=== PATIENT | male | born 1940 | race Caucasian/White ===

== ENCOUNTER 2019-08-20 00:32 | Outpatient (CLI) | payer MEDICARE, SELFPAY | END 2019-08-20 00:33 | disposition home or self-care (01) | LOC: ANHCOVIDDT 00:32 | PROVIDERS: PCP Family Medicine Adolescent Medicine; Visit Provider Internal Medicine Gastroenterology | DX: Z01.812 Encounter for preprocedural laboratory examination (principal); Z20.828 Contact with and (suspected) exposure to other viral communicable diseases | CPT/HCPCS: 87635; C9803; U0003 ==

== ENCOUNTER 2019-08-23 01:29 | Day surgery (SDC) | payer MEDICARE, SELFPAY ==
[2019-08-17 13:47] VITALS: BMI 24.4
[2019-08-23 06:47] VITALS: BP 124/65; PULSE 74; RESP 18; TEMP 35.9; O2SAT 100
[2019-08-23] MEDS: LACTATED RINGERS 1,000 ML 150 ML IV CONT (07:00)
--- NOTE | 2019-08-23 07:27 | WPDANESEPPF ---
Anes - Initial Pre Proc Eval Procedure: Operation Date: 08/23/19 08:00 Proposed Procedures p Colonoscopy - Nick Mckeon MD Date/Time: 08/23/19 07:27 Surgeon: Nick Mckeon MD Pre Op Diagnosis: Diarrhea Patient Data Age: 79 Gender: M Height: 5 ft 10 in Weight: 76.6 kg Last Vital Signs Temp 35.9 C L 08/23/19 06:47 Pulse 74 08/23/19 06:47 Resp 18 08/23/19 06:47 BP 124/65 08/23/19 06:47 Pulse Ox 100 08/23/19 06:47 Allergies Allergy/AdvReac Type Severity Reaction Status Date / Time No Known Allergies Allergy Verified 08/23/19 06:43 Home Medications Medication Instructions Recorded Confirmed Type lisinopril 10 mg PO DAILY 08/17/19 08/17/19 History Patient hx anesthesia problems: none Family hx anesthesia problems: none PMFSH Past Medical History Medical History Hypertension Anes - Eval Final PreProcedure Day of Procedure 08/23/19 07:27 Patient weight: normal Heart: regular rate and rhythm Lungs: clear to auscultation Airway: Mallampati scale class II Neurological: alert and oriented Last oral intake: >/= 8 hours ASA classification: II Emergent: no Anesthetic plan: proceed Anesthesia type and monitoring: general GIVS Informed Consent: The patient's anesthetic plan and its attendant risks and benefits were discussed with the patient/family/POA. Questions were solicited and answers provided to the satisfaction of the patient/family/POA.
--- NOTE | 2019-08-23 07:36 | P.CONGI_ITS ---
Assessment and Plan Assessment and plan (1) History of colon polyps: Code(s): Z86.010 - Personal history of colonic polyps Status: Acute Assessment and Plan: Because of his personal history of colon polyp screening colonoscopy will be performed today. It has been 5 years since last exam. (2) Diarrhea: Code(s): R19.7 - Diarrhea, unspecified Status: Acute Assessment and Plan: Play shunt complains of diarrhea however his bowel habits have alternated be tween diarrhea and constipation for some time. No bleeding has been noted as weight has remained stable. This symptom complex most consistent with irritable bowel syndrome. Will be evaluated at time of colonoscopy. Patient has tried fiber, Questran with no relief of symptoms. Imodium use may contribute to alternation between diarrhea and constipation is not encouraged. Kaopectate may be a better choice. Further recommendations may be given after endoscopy. GI Consult Note Consult date/time: 08/23/19 07:36 HPI: Gold Campbell is a 79 year old male Seen in evaluation at the request of Dr. Morgan Escobar. Patient reports a history diarrhea for many years. He states loose stools will fluctuate with normal stools. Initially was tried on Questran with some improvement. Diarrhea currently a occurs at least 1 time a week. He recently has tried fiber supplementation with no specific change in his bowel pattern. He occasionally will use Immodium AD To control his bowel habits. He denies any blood loss. He does note the diarrhea will alternate with constipation as well. Most recent colonoscopy 2014 and prior to that 2009. He does have a history of colon polyps in the past. he has a history of hypertension. Current medications include lisinopril. He has no known drug allergies. Family history is noncont Review of Systems Review of Systems: All systems reviewed & are unremarkable except as noted in HPI and below PMFSH Past Medical History Medical History Hypertension Meds Home Medications and Allergies Home Medications Medication Instructions Recorded Confirmed Type lisinopril 10 mg PO DAILY 08/17/19 08/17/19 History Allergies Allergy/AdvReac Type Severity Reaction Status Date / Time No Known Allergies Allergy Verified 08/23/19 06:43 Vital Signs Vital Signs - 24 hr 08/23/19 06:47 Temperature 35.9 C L Pulse Rate 74 Respiratory Rate 18 Blood Pressure 124/65 Pulse Oximetry 100 Exam Narrative: Exam Narrative: Physical exam reveals patient to be alert. Vital signs are stable. HEENT exam unremarkable. Lungs are clear to auscultation and percussion. Heart is without murmur or extra sounds. Abdominal exam bowel sounds are present soft nontender with no hepatosplenomegaly. Digital external rectal exam is normal.
[2019-08-23 08:07] VITALS: BP 82/49; PULSE 72; RESP 22; O2SAT 96
[2019-08-23 08:17] VITALS: BP 96/62; PULSE 61; RESP 18; O2SAT 100
[2019-08-23 08:27] VITALS: BP 114/73; PULSE 62; RESP 18; O2SAT 100
[2019-08-23 08:37] VITALS: BP 99/60; PULSE 68; RESP 18; O2SAT 100
== END 2019-08-23 08:47 | disposition home or self-care (01) ==
PROVIDERS: PCP Family Medicine Adolescent Medicine; Visit Provider Internal Medicine Gastroenterology
PROC: 0DJD8ZZ Inspection of Lower Intestinal Tract, Via Natural or Artificial Opening Endoscopic (ICD-10-PCS; CPT 45378; principal; 2019-08-23 08:00)
DX: Z12.11 Encounter for screening for malignant neoplasm of colon (principal); K63.5 Polyp of colon; R19.7 Diarrhea, unspecified; K57.30 Diverticulosis of large intestine without perforation or abscess without bleeding; K64.8 Other hemorrhoids; I10 Essential (primary) hypertension
CPT/HCPCS: 45385; 88305; J7120

== ENCOUNTER → 2021-08-22 11:43 | Outpatient (CLI) | payer MEDICARE, SELFPAY ==
--- NOTE | ~2021-08-22 | CT_ITS ---
EXAMINATION: CT sinus wo con DATE: 08/22/2021 12:01 INDICATION: Chronic frontal sinusitis TECHNIQUE: Computed tomography (CT) of the paranasal sinuses was performed without intravenous contra st. The dose-length product was 271.16 mGy-cm. Automated exposure control and iterative reconstructio n technique were employed. COMPARISON: CT dated 11/20/2015 FINDINGS: There is mucosal thickening of the maxillary, ethmoid sinuses with air-fluid levels. Mastoi ds are pneumatized. No depressed skull fractures. There is intracranial atherosclerosis. There is rig htward nasal septal deviation. There are surgical changes of the ostiomeatal units. IMPRESSION: 1. Moderate sinus disease primarily involving the maxillary sinuses. Reviewed, dictated and finalized at location B.
== END ==
PROVIDERS: PCP Family Medicine Adolescent Medicine; Visit Provider Otolaryngology
DX: J32.1 Chronic frontal sinusitis (principal)
CPT/HCPCS: 70486

== ENCOUNTER 2023-11-30 12:39 | Outpatient (CLI) | payer SELFPAY ==
--- NOTE | ~2023-11-30 | MR_ITS ---
EXAMINATION: MR cervical spine wo con DATE: 11/30/2023 13:20 INDICATION: Neck pain. Left arm weakness. TECHNIQUE: Magnetic resonance imaging (MRI) of the cervical spine was performed without intravenous c ontrast. COMPARISON: Cervical spine MRI 01/27/2018, 05/27/04 FINDINGS: There is 12 degrees levoscoliosis of cervicothoracic spine. There is interbody fusion from C3 to C6. There is severely decreased disc height at C2-C3. There are changes of posterior fusion pro cedure from C4 to C7 with lateral mass screws. There are laminectomies at C4 and C5 and C6. There is increased T2-weighted signal intensity in the spinal cord on the left at C4-C5 on only one image, pro bably an artifact. The following disc levels are specifically discussed: C2-C3: The disc is bulging and has an annular fissure. There is severe bilateral uncovertebral joint osteoarthritis. There is severe bilateral facet joint osteoarthritis. There is mild left neural jeanne inal stenosis. There is moderate central canal stenosis with ventral and dorsal indentation of the sp inal cord. C3-C4: There is no uncovertebral joint hypertrophy. There is mild bilateral facet joint hypertrophy. There is no neural foraminal stenosis. There is no central canal stenosis. C4-C5: There is moderate bilateral uncovertebral joint hypertrophy. There is no facet joint hypertrop hy. There is mild bilateral neural foraminal stenosis. There is no central canal stenosis. C5-C6: There is moderate bilateral uncovertebral joint hypertrophy. There is no facet joint hypertrop hy. There is mild bilateral neural foraminal stenosis. There is no central canal stenosis. C6-C7: There is a central protrusion. There is moderate bilateral uncovertebral joint osteoarthritis. There is severe bilateral facet joint osteoarthritis. There is mild bilateral neural foraminal steno sis. There is mild central canal stenosis. C7-T1: There is a central protrusion. There is no uncovertebral joint osteoarthritis. There is mild b ilateral facet joint osteoarthritis. There is mild bilateral neural foraminal stenosis. There is no c entral canal stenosis. IMPRESSION: 1. Severe cervical spondylosis. 2. Anterior procedure from C3 to C6. Posterior fusion procedure from C4 to C6. Reviewed, dictated and finalized at location A.
== END 2023-11-30 12:40 ==
PROVIDERS: PCP Family Medicine Adolescent Medicine; Visit Provider Family Medicine Adolescent Medicine
DX: M47.892 Other spondylosis, cervical region (principal); Z98.1 Arthrodesis status
CPT/HCPCS: 72141

== ENCOUNTER 2024-07-08 08:33 | Outpatient (CLI) | payer MEDICARE, SELFPAY ==
--- NOTE | ~2024-07-08 | CT_ITS ---
EXAMINATION: CT sinus wo con DATE: 07/08/2024 08:58 INDICATION: Recurrent headaches. Chronic sinus disease. TECHNIQUE: Computed tomography (CT) of the paranasal sinuses was performed without intravenous contra st. The dose-length product was 263.20 mGy-cm. Automated exposure control and iterative reconstructio n technique were employed. COMPARISON: 08/22/2021 FINDINGS: There is moderate mucosal thickening of the maxillary sinuses. There are surgical changes o f the ostiomeatal units. There is mild mucoperiosteal reaction of the maxillary sinuses. No nasal sep rancho deviation. Mastoids are pneumatized. IMPRESSION: 1. Moderate maxillary sinus disease, likely chronic. Reviewed, dictated and finalized at location A.
== END 2024-07-08 08:34 | disposition home or self-care (01) ==
LOC: MICIMG 08:34
PROVIDERS: PCP Family Medicine Adolescent Medicine; Visit Provider Family Medicine Adolescent Medicine
DX: J32.1 Chronic frontal sinusitis (principal); R51.9 Headache, unspecified
CPT/HCPCS: 70486

== ENCOUNTER 2025-01-05 07:46 | Outpatient (RCR) | payer MEDICARE, SELFPAY ==
--- NOTE | 2025-01-05 08:48 | PTOPEVDC ---
Assessment and note entered by Jo Scherer, PT Thank you for referring Gold Campbell to [facility].? An evaluation has been completed. No further treatment is needed. Evaluation/ Discharge Assessment Status Evaluation ICD-10 Condition Codes (PT) Pain in right knee M25.561 Onset about 1 year Subjective Information chronic issues with R knee pain, have injections in knee about every 6 months; xray R knee: mild medial joint narrowing, mild patellofemoral changes does not do any exercises for his knee activity: independent with all home and self care tasks; does not use assistive device; works 2-3 days/week on his property, rides motorcycle; home with ; Reported Pain Level Pain Score Self Report Additional Pain Score Comments pain range 0-5/10 in the past week; injection helps knee pain pain just hits, not relate to anything walking is not limited due to pain Assessment PT Clinical Summary Checo has the diagnosis of R knee pain. He has chronic knee pain and manages it with injections about every 6 months. He is active but does not perform any regular exercises for his legs. With the evaluation: decreased strength of hip abduction and tightness over hamstrings and quad/ anterior hip bilateral. Education to pt on home exercises. He did not want any additional therapy and states he will do the exercises at home. Issued PT name and number for him to call if any further questions arise. Discharge PT services after education completed for HEP. Plan of Care PT Services Indicated No Treatment Frequency and pt did not want additional therapy Duration
== END 2025-01-05 09:59 | disposition home or self-care (01) ==
LOC: ANHPT 07:46
PROVIDERS: PCP Family Medicine Adolescent Medicine; Visit Provider Orthopaedic Surgery
DX: M25.561 Pain in right knee (principal)
CPT/HCPCS: 97110; 97161; 97530

== ENCOUNTER 2025-01-06 09:49 | Outpatient (CLI) | payer MEDICARE, SELFPAY ==
--- NOTE | ~2025-01-06 | CT_ITS ---
EXAMINATION: CT sinus wo con COMPARISON: None HISTORY: CHRONIC FRONTAL SINUSITIS TECHNIQUE: Axial images were obtained without IV contrast. Sagittal, coronal reconstruction images were obtained from the axial views. CT scan performed using dose optimization techniques including the following automated exposure control; adjustment of mA and/or kV; use of iterative reconstruction technique. Automatic exposure control was used to reduce radiation dose. Permanent radiation dose record is archived to PACS. FINDINGS: The nasal bones appear intact. The anterior maxillary sinus elizabeth, zygomatic arches and temporomandibular joints are intact. Orbital floors and medial orbits are intact. The visualized brain parenchyma and orbits are within normal limits. Soft tissues appear unremarkable. Moderate mucosal thickening within the frontal sinuses. Moderate mucosal thickening in the ethmoidal sinuses. Moderate mucosal thickening in the left maxillary sinus with minimal mucosal thickening in the right maxillary sinus. Sequelae of previous surgery noted. Nasal septum in the midline. Mild thickening of the turbinates. No significant 9 of the nasal cavities. Minimal mucosal thickening in the sphenoid sinuses. There is no osseous destruction or wall thickening identified. IMPRESSION: Sinusitis detailed above Reviewed, dictated and finalized at location P. IMPRESSION: Sinusitis detailed above
== END 2025-01-06 09:50 | disposition home or self-care (01) ==
LOC: MICIMG 09:51
PROVIDERS: PCP Family Medicine Adolescent Medicine; Visit Provider Otolaryngology
DX: J32.1 Chronic frontal sinusitis (principal)
CPT/HCPCS: 70486

== ENCOUNTER 2025-01-18 08:41 | Outpatient (CLI) | payer MEDICARE, SELFPAY ==
--- NOTE | 2025-01-18 08:53 | ECG_ITS ---
Test Date: 2025-01-18 08:58:55 Measurements Intervals [place] Rate: 86 P: -9 RI: 126 QRS: -52 QRSD: 109 T: 53 QT: 353 QTc: 424 Interpretive Statements SINUS RHYTHM LEFT ANTERIOR FASCICULAR BLOCK LEFT VENTRICULAR HYPERTROPHY AND ST-T CHANGE POSSIBLE ANTERIOR MYOCARDIAL INFARCTION ABNORMAL ECG No previous ECG available for comparison Electronically Signed On 01-18-2025 09:08:32 CDT by Colin Blanco D.O.
== END 2025-01-18 08:42 | disposition home or self-care (01) ==
LOC: ANHSURGERY 08:45
PROVIDERS: PCP Family Medicine Adolescent Medicine; Visit Provider Otolaryngology
DX: Z01.818 Encounter for other preprocedural examination (principal); I10 Essential (primary) hypertension; I44.4 Left anterior fascicular block; R94.31 Abnormal electrocardiogram [ECG] [EKG]
CPT/HCPCS: 93005

== ENCOUNTER 2025-01-23 01:48 | Day surgery (SDC) | payer MEDICARE, SELFPAY ==
--- OUTSIDE RECORDS SUMMARY | 2004-09-24 10:00 | XMS_ITS | Continuity of Care Document ---
Author Organization [facility] Address [address] [facility] [address] [place] [address] Phone Care Team Providers Care Bread Stacker Name Role Phone Morel OD, Nick Unavailable Unavailable Advance Directives Directive Yes / No Effective Date File Name No Information Encounters Encounter Description Practice Location Reason(s) For Visit Diagnoses Date Provider Providers Copied on Encounter [facility], [address], [place], [place], [id number], [place] tel:[phone] [facility] No Information Aníbal-2 1-200 5 Morel OD Nick. [address] , [address], [place], [address], [place]. tel:[phone] Family History Family Member Type Diagnosis Age At Onset No Information Payers Payer name Insurance type Covered alliance party ID Authoriza tion(s) Medicare [facility] [id number] [place] Commercial [id number] Social History Type Description Quantity Date Captured Comments Sex Male Smoking Status No Information Chief Complaint And Reason For Visit No Information Reason For Referral Reason For Referral No Information History Of Present Illness Encounter Date Complaint History Of Prese nt Illness No Information Functional Status Date Functional Assessmen t No Information Instructions Date Instruction Additional Infor mation No Information Assessments Type Assessment Date No Information Patient Care Teams Name Effective Dates (start - stop) Status Members No Information
[2025-01-16 14:04] VITALS: BMI 25.0
--- NOTE | 2025-01-16 14:31 | PC.NURSE ---
[facility] has started construction of its new state of the art ER which will open Spring 2026. With this, we anticipate parking may be a challenge for some our surgical patients and families. Parking spaces are limited but are available for all Surgical, obstetrics, and ER patients sharing this lot. If you arrive and find you are having a hard time finding a parking space, please note that we understand the challenges, please drive around the hospital and park near Hospital Entrance 1. When you enter this entrance, you can ask a volunteer to direct or take you back to the surgical waiting area to check in. We appreciate everyone?s understanding of these expected challenges while we build for your future. Report to the Outpatient Waiting Room, entrance under the green pavilion located off [address], at time ___7:00AM__ on date __01/23/25___. Planned Procedure Time: __9:00AM____.? Time changes happen often and if your time is changed the preop area will call you the afternoon before. - You and your visitor will be asked to self-screen and do not enter if you have any COVID symptoms. Please call surgeon if you need to reschedule. - A mask is optional within the hospital at this time. Patients may have clear liquids (water, carbonated beverages, clear teas, apple juice) until 3 hours prior to surgery (6:00AM) with a maximum of 20 ounces. - No food from midnight until time of surgery and no smoking, or chewing tobacco (or any form of nicotine). No chewing gum, candy or mints. Take only the following medications with a SIP of water on the morning of surgery: ____NONE DO NOT STOP ANY OF YOUR OTHER PRESCRIPTION MEDICATIONS PRIOR TO SURGERY EXCEPT THE FOLLOWING Hold all vitamins and supplements for 3 days per anesthesiologist. LAST DOSE 01/19/25 Medications to discontinue per physician NONE Date to take last dose Please no make-up, nail fijian, hairspray, perfume, deodorant, or body powder the day of surgery.? No jewelry (including any body piercings) or valuables the day of surgery, leave them at home.? Please take a shower or bath the night before, or the morning of, surgery with an antibacterial soap.? Wear comfortable, loose fitting clothing. - Jewelry must be removed prior to entering the operating room.? Rings and piercings that are not removed may be cut off. - The hospital will not accept responsibility for valuables.? - Please leave all valuables, including medications, at home the day of surgery. If you are going home after surgery, a licensed milk driver must drive you home.? - NO public transportation without another adult if you receive anesthesia. - We recommend that an adult stay with you for 24 hours following discharge. - We also recommend that you do not drive, make important decision, drink alcoholic beverages, or take any drugs that were not prescribed by your health care provider for at least 24 hours after your discharge time. Follow any additional instructions given to you from your surgeon. Telephone instructions given to ___PATIENT and asked if any additional questions and then verbalized understanding. Patient advised to call surgeon office or pre surgery nurse liaison [phone] if any additional questions.
[2025-01-23] VITALS (8 sets, daily range): BP systolic 103–138; BP diastolic 56–69; PULSE 56–73; RESP 12–16; TEMP 36.2–36.7; O2SAT 96–100; BMI 25.1
--- OUTSIDE RECORDS SUMMARY | 2025-01-23 01:50 | XMS_ITS | Clinical Summary ---
Author Organization [facility] Address [address] [place] [address] Care Team Providers Care International Exchange Coordinator Name Role Phone Morgan Son MD Primary Care Provider [phone] Allergies No known active allergies Medications glucosamine-cho ndroitin 500-400 MG Cap Take 1 capsule by mouth daily. Active lisinopril 20 MG tablet 05/10/2018 Active omeprazole 20 MG capsule 06/03/2018 Active colesevelam 625 MG tablet 08/05/2018 Active Active Problems Problem Noted Date Diagnosed Date Osteoarthritis 02/22/2018 Asthma 02/22/2018 Hypertension 02/22/2018 Cataract 02/22/2018 GERD (gastroesophageal reflux disease) 8 Colon polyp 02/22/2018 Diverticulitis 02/22/2018 Radiculopathy, cervical region 02/22/2018 Social History Tobacco Use Types Packs/Day Years Used Date Smoking Tobacco: Never Smokeless Tobacco: Never Alcohol Use Standard Drinks/Week Comments Yes 5 (1 standard drink = 0.6 oz pur e alcohol) Sex and Gender Information Value Date Recorded Sex Assigned at Not on file Legal Sex Male 3:51 PM CDT Gender Identity Not on file Sexual Orientation Not on file Last Filed Vital Signs Vital Sign Reading Time Taken Comments Blood Pressure 118/62 08/31/2018 2:29 PM CDT Pulse 77 08/31/2018 2:29 PM CDT Temperature 36.2 C (97.2 F) 08/12/2018 8:38 AM CDT Respiratory Rate 16 08/12/2018 9:54 AM CDT Oxygen Saturation 100% 08/12/2018 9:54 AM CDT Inhaled Oxygen Concentration - - Weight 78.6 kg (173 lb 3.2 oz) 08/31/2018 2:29 P M CDT Height 177.8 cm (5' 10) 08/31/2018 2:29 PM CDT Body Mass Index 24.85 08/31/2018 2:29 PM CDT Plan of Treatment Health Maintenance Due Date Last Done Comments DTaP, Tdap and Td Vaccines ( 1 - Tdap) 1959 Pneumococcal Vaccine: 50+ Ye ars (1 of 2 - PCV) 1957 Zoster Vaccines (1 of 2) 1988 RSV Immunization or 60+ Years (1 - 1-dose 75+ series) 2013 COVID-19 Vaccine ( - 2023-2 5 season) 2024 Influenza Adult (#1) 2025 Meningococcal B Vaccine Aged Out No l onger eligible based on patient's age to complete this topic Meningococcal Vaccine Aged Out No alexandra dilan eligible based on patient's age to complete this topic RSV Immunizations Under 20 Months Aged Out No longer eligible based on patient's age to complete this topic Care Teams International Exchange Coordinator Relationship Specialty Start Date End Date Morgan Son MD [address] [place] [address] PCP - General FAMILY PRACTICE 02/22/18
[2025-01-23] MEDS: LACTATED RINGERS 1,000 ML 30 ML IV CONT (07:40)
--- NOTE | 2025-01-23 07:43 | P.PNAN_ITS ---
Anes - Initial Pre Proc Eval Procedure: Operation Date: 01/23/25 09:00 Proposed Procedures p Image Guided Bilateral Frontal Sinusotomy, Bilateral Maxillary Antrostomy, Possible Bilateral Ethmoidectomy - René Yin MD Date/Time: 01/23/25 07:43 Surgeon: René Yin MD Pre Op Diagnosis: Chronic Sinusitis Patient Data Age: 84 Gender: M Height: 1.78 m Weight: 79 kg Allergies Allergy/AdvReac Type Severity Reaction Status Date / Time No Known Allergies Allergy Verified 01/23/25 07:52 Home Medications ?Medication ?Instructions ?Recorded ?Confirmed ?Type glucosamine-chondroitin 250 mg-200 1 tablet PO BID 01/16/25 History mg tablet (Osteo Bi-Flex) ovtjlscuypaem-lxqoeauzbwsmh-cfvrgygdbsf 2 tablet PO Q4 -6H PRN sinus 07/01/22 01/16/25 History 5 mg-325 mg-200 mg tablet (Tylenol symptoms Sinus Severe) cholestyramine-aspartame 4 gram 4 g PO BID #1,386 gram s 01/17/24 01/16/25 Rx oral powder (Prevalite) lisinopril 20 mg tablet 20 mg PO DAILY #100 tabs 01/16/25 Rx acetaminophen 500 mg tablet 1,000 mg PO Q6H PRN pain 1 01/16/25 History (Acetaminophen Pain Relief) Patient hx anesthesia problems: none Family hx anesthesia problems: none Results Review: All pre-operative results and documents have been reviewed as part of the pre- operative evaluation. [facility] Past Medical History Medical History Frequent headaches History of colon polyps Hypertension Surgical History Surgical History History of cholecystectomy (1993) History of Og fundoplication (2000) History of inguinal hernia repair (2001) History of sinus surgery x2 Family History Family History Mother Leukemia Father Acute myocardial infarction Heart disease Hypertension Sibling Acute myocardial infarction Heart disease Hypertension Other Colon polyp Social History Social History (Updated 12/21/24 @ 09:27 by Valerie Santoro [facility]) Smoking status: Never smoker Second hand tobacco smoke exposure: No Alcohol intake: current Drinks per week: 4 Alcohol use details: rarely Substance use: never Substance use type: does not use Do You Feel Safe in your Home?: Yes Lack of Transportation: No Lack of Food: Never True Current Housing: I Have Housing Concerned About Future Housing: No Difficulty Paying Gas/Electric Bills: No Difficulty Paying for Meds: No Currently Unemployed: No Education: High School Diploma/GED Difficulty w/ Childcare or Family Care: No Living arrangements: with family Additional living arrangements comments: Occupation/Education: retired 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 Gender identity (if verbalized by the patient): Male Spiritual care concerns: No Agree to blood products: Yes Anes - Eval Final PreProcedure Day of Procedure 01/23/25 07:43 Patient weight: normal Heart: regular rate and rhythm Lungs: clear to auscultation Airway: Mallampati scale class II and special considerations poor extension Neurological: alert and oriented Last oral intake: >/= 8 hours ASA classification: III Emergent: no Anesthetic plan: proceed Anesthesia type and monitoring: general ETT and standard monitoring Results Review: All pre-operative results and documents have been reviewed as part of the pre- operative evaluation. Informed Consent: The patient's anesthetic plan and its attendant risks and benefits were discussed with the patient/family/POA. Questions were solicited and answers provided to the satisfaction of the patient/family/POA.
[2025-01-23] MEDS: OXYMETAZOLINE HCL 0.05% NAS 15 ML BTL (*BKC) 1 SPRAY NASAL (07:45)
[2025-01-23] MEDS: ACETAMINOPHEN 500 MG TABLET 1000 MG PO (07:45)
--- NOTE | 2025-01-23 08:30 | WPDHPUPDATE1 ---
History and Physical Update Update Date/Time: 01/23/25 08:30 History and Physical has been reviewed, including an updated exam of the patient. There are NO changes in the patient's condition. Risks, benefits, and alternatives have been discussed and questions answered. Patient agrees to proceed with procedure.
[2025-01-23] MEDS: ceFAZolin 2 GM in SODIUM CHLORIDE 0.9% IV 50 ML 100 ML IVPB (08:51)
[2025-01-23] MEDS: LIDO 1%/EPINEPHRINE 1:100,000 50 ML VIAL 10 ML INFILTRATE (08:51)
[2025-01-23] MEDS: MUPIROCIN 2% OINT 22 GM TUBE 1 APPLIC TOPICAL (09:35)
--- NOTE | 2025-01-23 10:09 | P.OP_ITS ---
Procedure Note - Detailed Date of Procedure 01/23/25 Pre-op Diagnosis Chronic Sinusitis Post-op Diagnosis Same Procedure Performed Revision frontal sinusotomy, total ethmoidectomy and maxillary antrostomy. Image guided. Surgeon René Yin MD Anesthesia General Indications Chronic sinusitis Findings Created large frontal sinusotomies bilaterally, removed residual ethmoid cells, and enlarged maxillary antrostomies bilaterally. Afrin soaked nasopore bilater ally. Description of Procedure After consent was signed and verified, pt was taken to OR and placed under GETA. Timeout was performed and he was prepped and draped in standard fashion for FESS. Timeout was performed. Preoperative imaging loaded into fusion system and calibrated to the patient, accuracy was confirmed to within 1mm. Afrin soaked cottonoids placed bilaterally. Starting on the right side, under endoscopic visualization using a navigated frontal seeker, the true ostia of the sinus was identified. This was then carefully widened with combination of biting instruments, hosemann punch and frontal kerasin. This created a very large sinusotomy. There were several septae of ethmoid sinus resected to completely open the cavity. The maxillary sinus was revised with backbiter as well. There was thick mucous suctioned from all the sinuses. Afrin soaked cottonoids were then placed and attention was directed to the left side where the procedure was performed identically. Afterwards, afrin soaked nasopore was placed bilaterally. No CSF leak or concern for orbital injury. Pt returned to anesthesia who woke him up, extubated him and transferred him to PACU for recovery in stable condition without complication. Estimated Blood Loss 10 Drains No Packing Yes (nasopore bilaterally) Pathology None sent Complications No immediate complications Condition Stable Disposition PACU
== END 2025-01-23 11:48 | disposition home or self-care (01) ==
PROVIDERS: PCP Family Medicine Adolescent Medicine; Visit Provider Otolaryngology
PROC: (CPT 31253; principal; 2025-01-23 09:00)
DX: J32.1 Chronic frontal sinusitis (principal); I10 Essential (primary) hypertension; Z98.890 Other specified postprocedural states; Z90.49 Acquired absence of other specified parts of digestive tract; Z86.0100 Personal history of colon polyps, unspecified; Z83.719 Family history of colon polyps, unspecified; Z80.6 Family history of leukemia; Z82.49 Family history of ischemic heart disease and other diseases of the circulatory system
CPT/HCPCS: 31253; 31267; 61782; J0690; A9270; J2003; J2004; J2405; J2704; J3010; J7120

== ENCOUNTER 2025-02-10 13:03 | Emergency (ER) | payer MEDICARE, SELFPAY ==
--- NOTE | ~2025-02-10 | XR_ITS ---
EXAMINATION: XR pelvis 1-2V DATE: 02/10/2025 13:31 INDICATION: Posterior hip pain for 2 weeks. No injury. TECHNIQUE: A single frontal image of the pelvis is obtained. COMPARISON: None. FINDINGS: There is bowel gas and stool projecting over the pelvis which limits evaluation. Bones appear osteopenic. Mild degenerative change in the hips and pubic symphysis. Osteophytosis about the hips. Subtle vertical lucencies in the bilateral posterior acetabulum which may be secondary to degenerative change, however, fractures of indeterminate age is possible in the appropriate clinical setting. If of concern, consider a CT or MRI for further assessment. IMPRESSION: 1. Subtle vertical lucencies in the bilateral posterior acetabuli which may be secondary to degenerative change, however, fractures of indeterminate age is possible in the appropriate clinical setting. If of concern, consider a CT or MRI for further assessment. 2. Mild degenerative change in the hips and pubic symphysis. Reviewed, dictated and finalized at location Q. RTMENT HEAD IMPRESSION: 1. Subtle vertical lucencies in the bilateral posterior acetabuli which may be secondary to degenerative change, however, fractures of indeterminate age is po ssible in the appropriate clinical setting. If of concern, consider a CT or MRI for further assessment. 2. Mild degenerative change in the hips and pubic symphysis.
--- NOTE | ~2025-02-10 | XR_ITS ---
XR lumbar spine 2-3V 02/10/2025 13:31 Indication: Low back pain Procedure: 3 views lumbar spine Comparison: No prior studies for comparison. Findings: There is disc narrowing at L4-5 and L5-S1. Vertebral body heights are maintained. No fracture, subluxation or dislocation. No evidence for spondylolisthesis. Mild dextrocurvature of the lumbar spine. Pedicles intact. There are surgical changes in the upper abdomen. Mild facet hypertrophy at L4-5 and L5-S1. Impression: 1: Mild-moderate lumbar spondylosis. Reviewed, dictated and finalized at location O. [employer] NURSE [employer]ACTITIONER Impression: 1: Mild-moderate lumbar spondylosis.
[2025-02-10 13:13] VITALS: BP 117/61; PULSE 83; RESP 18; TEMP 36.5; O2SAT 99
--- NOTE | 2025-02-10 13:56 | ED.BACK ---
HPI - Back Pain/Injury General Chief Complaint: Back Pain/Injury Stated Complaint: Left Lower Back/Hip Pain Time Seen by Provider: 02/10/25 13:45 Source: patient and RN notes reviewed Mode of arrival: ambulatory Limitations: no limitations History of Present Illness HPI Narrative: 84 year-old male patient presents Express Care complaining of left-sided low back pain for approximately 1 week. Patient denies any injuries. Patient did said about 4-5 days ago he did have a ground level fall accidentally tripped any off a ladder he was getting down a of of really any on his right hip. Patient denies hitting his head, loss of consciousness, neck pain, upper back pain every other injuries. Patient's symptom follow not make his pain any worse. Patient reports the pain is worse with certain movements of his back is worse in the morning and gets gradually better throughout the day. Patient took some Tylenol yesterday and said it helped with the pain. Patient denies taking any blood thinners. Patient denies any significant past medical history. Related Data Home Medications ?Medication ?Instructions ?Recorded ?Confirmed ?Last Taken ?Type glucosamine-chondroitin 250 mg-200 1 tablet PO BID 07/01/22 01/16/25 Unknown History mg tablet (Osteo Bi-Flex) gngmwopcuooht-kqmekebzfvpxz-orsexgnmeuc 2 tablet PO Q4-6H PRN sinus 07/01/22 01/16/25 Unknown History 5 mg-325 mg-200 mg tablet (Tylenol symptoms Sinus Severe) acetaminophen 500 mg tablet 1,000 mg PO Q6H PRN pain 01/16/25 01/16/25 Unknown History (Acetaminophen Pain Relief) Allergies Allergy/AdvReac Type Severity Reaction Status Date / Time No Known Allergies Allergy Verified 02/10/25 13:17 Review of Systems Review of Systems: CONSTITUTIONAL: Denies fever, chills, or sweats. EYES: Denies visual changes, redness, or discharge. ENT: Denies rhinorrhea, congestion, sore throat, or otalgia. CARDIOVASCULAR: Denies chest pain, palpitations, or edema. RESPIRATORY: Denies cough or dyspnea. GASTROINTESTINAL: Denies abdominal pain, nausea, vomiting, or diarrhea. GENITOURINARY: Denies dysuria or hematuria. SKIN: Denies rash or itching. MUSCULOSKELETAL: Denies, joint pain, or myalgia. Positive for low back pain. NEUROLOGIC: Denies headache, numbness, or weakness. PSYCHIATRIC: Denies anxiety or depression. All other systems reviewed are negative, except as documented in HPI. [facility] Past Medical History Medical History Frequent headaches History of colon polyps Hypertension Surgical History Surgical History History of cholecystectomy (1993) History of Og fundoplication (2000) History of inguinal hernia repair (2001) History of sinus surgery x2 Family History Family History Mother Leukemia Father Acute myocardial infarction Heart disease Hypertension Sibling Acute myocardial infarction Heart disease Hypertension Other Colon polyp Social History Social History Second hand tobacco smoke exposure: No Alcohol intake: current Drinks per week: 4 Alcohol use details: rarely Substance use: never Substance use type: does not use Do You Feel Safe in your Home?: Yes Lack of Transportation: No Lack of Food: Never True Current Housing: I Have Housing Concerned About Future Housing: No Difficulty Paying Gas/Electric Bills: No Difficulty Paying for Meds: No Currently Unemployed: No Education: High School Diploma/GED Difficulty w/ Childcare or Family Care: No Living arrangements: with family Additional living arrangements comments: Occupation/Education: retired 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 Gender identity (if verbalized by the patient): Male Spiritual care concerns: No Agree to blood products: Yes Comments At the time of my signature, I reviewed and agree with the nursing past medical, surgical, social, and family history. There is no relevant family history pertinent to the patient complaint. Exam Narrative: GENERAL: This is a well-nourished, well-developed adult, in no apparent distress. They are non ill-appearing, nontoxic appearing. HEAD: normocephalic, atraumatic. EYES: Sclera clear/white. Conjunctiva normal. Vision is grossly intact. Extraocular movements intact EARS: External ears normal, Hearing grossly intact. NOSE: External nose normal THROAT: Mucous membranes moist, NECK: Neck supple, non-tender without lymphadenopathy, masses or thyromegaly. No cervical point tenderness, crepitus, or step-offs. No midline tenderness. CARDIOVASCULAR: Regular rate and rhythm RESPIRATORY: Respiratory rate normal, respiratory effort nonlabored, no respiratory distress. SKIN: warm, Dry, intact with no suspicious lesions or rash, good texture and turgor. NEURO: awake, alert, and oriented to person, place and time. There were no obvious focal neurologic abnormalities. EXTREMITIES: Pelvis: No shortening or rotation.. No pelvic instability. Normal range of motion. No bony tenderness. BACK: Left lower back tenderness to palpation.. No CVA tenderness. No thoracic or lumbar point tenderness, crepitus, or step-offs. No flank bruising. Course Course Emergency Course: Portions of this record may have been created with voice recognition software Level of Care: Express Care Visit Vital Signs Vital signs: Vital Signs Temperature 97.7 F 02/10/25 13:13 Pulse Rate 83 02/10/25 13:13 Respiratory Rate 18 02/10/25 13:13 Blood Pressure 117/61 02/10/25 13:13 Pulse Oximetry 99 02/10/25 13:13 Oxygen Delivery Room Air 02/10/25 13:13 Temperature 97.7 F 02/10/25 13:13 Pulse Rate 83 02/10/25 13:13 Respiratory Rate 18 02/10/25 13:13 Blood Pressure 117/61 02/10/25 13:13 Pulse Oximetry 99 02/10/25 13:13 Oxygen Delivery Room Air 02/10/25 13:13 Reviewed MDM - Back Pain/Injury MDM Narrative Medical decision making narrative: X-ray lumbar spine shows mild moderate lumbar spondylosis, x-ray of pelvis reveals mild degenerative changes to the hip along with for occult lucencies to the bilateral posterior acetabuli which likely is related to degenerative changes however fractures are possible in the appropriate setting according to radiology report. Patient has no bony tenderness, no pelvic instability, no shortening or rotation the hip, no pain with ambulation. It is unlikely that is a fracture to both acetabuli. Patient's symptoms likely related to the spondylosis of his lower spine. Discussed pain management and supportive care. Recommend follow-up with PCP next week. Discussed physical exam findings. Advised supportive measures and signs/symptoms to go to the ER. Pt is appropriate for outpt treatment and f/u. Differential Diagnosis Differential diagnosis: Likely lumbar radiculopathy, sciatica, strain of lumbar region and other (Degenerative disc disease, lumbar spondylosis, fracture, arthritis,) Imaging Data Radiologist's impression: ITS Impressions Lumbar Spine X-Ray 02/10/25 13:32 Impression: 1: Mild-moderate lumbar spondylosis. Pelvis X-Ray 02/10/25 13:33 IMPRESSION: 1. Subtle vertical lucencies in the bilateral posterior acetabuli which may be secondary to degenerative change, however, fractures of indeterminate age is possible in the appropriate clinical setting. If of concern, consider a CT or MRI for further assessment. 2. Mild degenerative change in the hips and pubic symphysis. Critical Care Time Critical Care Time Critical Care Time: No Discharge Plan Discharge Clinical Impression: Lumbar spondylosis Lower back pain Qualifiers: Chronicity: acute Back pain laterality: left Sciatica presence: without sciatica Qualified Code(s): M54.50 - Low back pain, unspecified Patient Disposition: Home Condition: Stable Instructions: Low Back Strain (ED), Degenerative Disc Disease (ED), Lower Back Exercises (ED) Additional Instructions: The x-ray of your lumbar spine and pelvis are negative for any fractures or acute findings. Did note degenerative disc changes to your lumbar spine along with arthritic changes to her pelvis. You may use apjz-lyi-yfcqyqz lidocaine patches as needed for pain. Up apply to the affected area 12 hours at a time. You may take ibuprofen 600 mg to 800 mg every 6-8 hours. Do not exceed more than 800 mg of ibuprofen per dose. Do not exceed more than 3200 mg ibuprofen in a day. You may take up to 1000 mg Tylenol every 6-8 hours. Do not exceed 1000 mg per dose, do exceed more than 4000 mg of Tylenol in a day. Please follow-up with your primary care provider if pain persist Rest. Avoid pushing, pulling, lifting --running or excessive walking-- or anything that worsens the symptoms You may try stretching your lower back or doing spinal decompression to help with symptoms. Go to the emergency department if you develop any numbness or tingling to your groin, weakness in your legs, or any loss of bowel or bladder function. Patient Language: Kinyarwanda Prescriptions: No Action glucosamine-chondroitin [Osteo Bi-Flex] 250-200 mg tablet 1 tablet PO BID Rx Instructions: give after food/meal Tylenol Sinus Severe 5-325-200 mg tablet 2 tablet PO Q4-6H PRN (Reason: sinus symptoms) acetaminophen [Acetaminophen Pain Relief] 500 mg tablet 1,000 mg PO Q6H PRN (Reason: pain) hydrocodone-acetaminophen 5-325 mg tablet 1 tablet PO Q4H PRN (Reason: pain) Qty: 20 0RF Prevalite 4 gram powder 4 g PO BID Qty: 1386 2RF Rx Instructions: administer w/meal; avoid other meds within 1hr before or 4-6hr after dose lisinopril 20 mg tablet 20 mg PO DAILY Qty: 100 3RF Patient Comments: QAM Follow-up/Referrals: Morgan Son MD [Primary Care Provider, [facility]] Time of Disposition: 13:53
== END 2025-02-10 13:59 | disposition home or self-care (01) ==
PROVIDERS: PCP Family Medicine Adolescent Medicine
DX: M47.816 Spondylosis without myelopathy or radiculopathy, lumbar region (principal); M54.50 Low back pain, unspecified; I10 Essential (primary) hypertension
CPT/HCPCS: 72100; 72170; 99214; G0463